=== PATIENT | female | born 1995 | race Caucasian/White ===

== ENCOUNTER → 2017-09-29 | Outpatient (CLI) | payer OTHER ==
[~2017-09-29] MED LIST: BIRTH CONTROL; PREDNISONE10 MG PO
[2017-09-29 15:20] LABS: HEMATOCRIT 41.4 % (37.0-47.0); HEMOGLOBIN 13.9 g/dl (12.0-16.0); MEAN CELL VOLUME 92.4 fl (81.0-99.0); MEAN CORPUSCULAR HGB CONC 33.6 g/dl (33.0-37.0); MEAN PLATELET VOLUME 9.7 fl (9.6-12.3); RED BLOOD COUNT 4.48 10*6/uL (4.10-5.10); RED CELL DISTRI WIDTH 11.8 % (0-14.5); WHITE BLOOD COUNT 9.3 10*3/uL (4.8-10.8)
[2017-09-29 15:24] LABS: ALBUMIN 3.7 gm/dl (3.1-4.5); BUN 9 mg/dl (7-24); CHLORIDE 104 mmol/L (98-107); CHOLESTEROL 186 mg/dL (<200); CREATININE 0.79 mg/dL (0.55-1.02); POTASSIUM 4.1 mmol/L (3.5-5.1); SGOT/AST 20 IU/L (3-35); SGPT/ALT 21 U/L (12-78); SODIUM 138 mmol/L (136-145); TOTAL PROTEIN 7.9 gm/dL (6.4-8.2); TRIGLYCERIDES 190 mg/dl (<150); VLDL CHOLESTEROL 38 mg/dL (6-40)
[2017-09-29 15:25] LABS: ALKALINE PHOSPHATASE 48 U/L (45-117); HDL CHOLESTEROL 58 mg/dl (40-60); LDL CHOLESTEROL 90 mg/dL (9-159)
== END | disposition home or self-care (01) ==
LOC: LAB 14:17
PROVIDERS: Family Medicine
DX: E78.00 Pure hypercholesterolemia, unspecified (principal); F41.1 Generalized anxiety disorder; E00-E89 Endocrine, nutritional and metabolic diseases; R05 Cough

== ENCOUNTER 2019-07-23 17:10 | Emergency (ER) | payer OTHER ==
[~2019-07-23] VITALS: Ht 152.4 cm; Wt 74.8 kg
[2019-07-23 17:45] LABS: BASO # 0.1 10*3/uL (0.0-0.1); BASO % 0.6 % (0.0-1.0); EOS # 0.4 10*3/uL (0.0-0.4); EOS % 3.6 % (1.0-4.0); HEMATOCRIT 39.5 % (37.0-47.0); HEMOGLOBIN 13.5 g/dl (12.0-16.0); LYMPH # 4.5 10*3/uL (1.3-4.4); LYMPH % 42.3 % (27.0-41.0); MEAN CORPUSCULAR HGB 30.8 pg (27.0-31.0); MEAN CORPUSCULAR HGB CONC 34.2 g/dl (33.0-37.0); MEAN PLATELET VOLUME 9.4 fl (9.6-12.3); MONO # 0.8 10*3/uL (0.1-1.0); MONO % 7.6 % (3.0-9.0); NEUT # 4.8 10*3/uL (2.3-7.9); NEUT % 45.7 % (47.0-73.0); PLATELET COUNT AUTOMATED 337 10*3/uL (130-400); RED BLOOD COUNT 4.39 10*6/uL (4.10-5.10); RED CELL DISTRI WIDTH 11.8 % (0-14.5); WHITE BLOOD COUNT 10.6 10*3/uL (4.8-10.8)
[2019-07-23 17:51] LABS: BILIRUBIN NEGATIVE (NEGATIVE); BLOOD TRACE-INTACT (NEGATIVE); CLARITY CLEAR (CLEAR); COLOR YELLOW (YELLOW); GLUCOSE NEGATIVE (NEGATIVE); KETONE NEGATIVE (NEGATIVE); LEUKO ESTERASE NEGATIVE (NEGATIVE); NITRITE NEGATIVE (NEGATIVE); SPECIFIC GRAVITY 1.025 (1.005-1.030)
[2019-07-23 18:01] LABS: ALBUMIN 3.6 gm/dl (3.1-4.5); ALKALINE PHOSPHATASE 51 U/L (45-117); BUN 9 mg/dl (7-24); CHLORIDE 107 mmol/L (98-107); CREATININE 0.91 mg/dL (0.55-1.02); LIPASE 127 U/L (73-393); POTASSIUM 3.7 mmol/L (3.5-5.1); SGOT/AST 13 IU/L (3-35); SGPT/ALT 21 U/L (12-78); SODIUM 140 mmol/L (136-145); TOTAL PROTEIN 7.4 gm/dL (6.4-8.2)
[2019-07-23 18:15] LABS: RBC 0-2 rbc/hpf (0-2)
[2019-07-23] MEDS ORDERED: PEPCID20 MG PO (18:54)
== END 2019-07-23 18:58 | disposition home or self-care (01) ==
LOC: ED 17:10
PROVIDERS: Physician Assistant
DX: K82.4 Cholesterolosis of gallbladder (principal); R10.13 Epigastric pain